=== PATIENT | female | born 1960 | race Caucasian/White ===

== ENCOUNTER → 2017-01-04 | Outpatient (CLI) | payer BC | LOC: MW.CHPM 10:53 | PROVIDERS: ATTEND Anesthesiology | DX: Z51.81 Encounter for therapeutic drug level monitoring (principal); Z79.891 Long term (current) use of opiate analgesic | CPT/HCPCS: 80305 ==

== ENCOUNTER → 2017-03-04 | Outpatient (CLI) | payer BC ==
[2017-03-04 10:18] LABS: CHLORIDE,CL 104 mmol/L (98-110); SODIUM,NA 139 mmol/L (136-146)
== END ==
LOC: MW.CHIM 09:35
PROVIDERS: ATTEND Internal Medicine
DX: E78.00 Pure hypercholesterolemia, unspecified (principal); I10 Essential (primary) hypertension; Z79.891 Long term (current) use of opiate analgesic
CPT/HCPCS: 36415; 80053; 80061; 80305; 83036; 85025

== ENCOUNTER → 2017-03-12 | Outpatient (CLI) | payer BC | LOC: MW.CHIM 14:39 | PROVIDERS: ATTEND Internal Medicine | DX: R07.9 Chest pain, unspecified (principal) | CPT/HCPCS: 93005 ==

== ENCOUNTER → 2017-03-16 | Outpatient (CLI) | payer BC ==
--- NOTE | 2017-03-17 08:51 | CR ---
EXAMINATION: Bilateral knees HISTORY: Pain COMPARISON: MRI dated 02/09/2014 TECHNIQUE: 4 views bilaterally FINDINGS: There is no acute osseous abnormality, dislocation, or fracture identified. Bone mineraliz ation and joint spaces appear normal. No soft tissue swelling or joint effusion. Mild osteophyte for mation is noted. IMPRESSION: Mild degenerative changes without acute findings.
== END | disposition home or self-care (01) ==
LOC: MW.MRI 14:02
PROVIDERS: ATTEND Orthopaedic Surgery
DX: M25.561 Pain in right knee (principal); M25.562 Pain in left knee; M25.761 Osteophyte, right knee; M25.762 Osteophyte, left knee; Z51.81 Encounter for therapeutic drug level monitoring; Z79.891 Long term (current) use of opiate analgesic
CPT/HCPCS: 735642650; 73564-50

== ENCOUNTER → 2017-03-23 | Outpatient (CLI) | payer BC ==
--- NOTE | 2017-03-23 08:09 | PCM.PRNOTE ---
- Free Text/Narrative Note: Lexiscan Indication CP Patient was supervised today during infusion portion of the stress test. The patient received Regadenoson 0.4 mg IV and nuclear agent using standard protocol. Sestamibi Tm99 25 Mci was gievn afterwards Baseline blood pressure is 124/79 with a heart rate 92 EKG sinus rhythm without ST abnormalities Vital signs at injection: Peak blood pressure 104/58 with a heart rate of 112 Vital signs at 4 minutes post injection: Peak blood pressure 116/76 with a heart rate of 112 EKG sinus tachycardia without further ST changes Patient complains of chest pain spontaneously resolved Adverse effects from [place] scan none Test done due to end of protocol Impression 1. electrocardiographically nondiagnostic for ischemia due to chemical protocol 2. nuclear imaging pending
--- NOTE | 2017-03-24 08:14 | NM ---
EXAMINATION: Nuclear medicine myocardial perfusion study with exercise stress test. HISTORY: Chest pain. PROCEDURE: Following intravenous administration of 0.4 mg of Lexiscan and 27.5 mCi of technetium 99m sestamib i, stress SPECT images including gating imaging was performed. FINDINGS: Stress myocardial SPECT images demonstrates uniform tracer uptake throughout the left ventricular my ocardium. Review of gated images demonstrates normal wall motion, contractility and wall thickening. The left ventricular ejection fraction is 72 %. The left ventricular chamber size is normal. IMPRESSION: 1. No evidence of myocardial ischemia. 2. Normal ventricular chamber size and function with ejection fraction of 72 %.
--- NOTE | 2017-03-25 13:00 | ECHO ---
EXAM DATE: 03/23/17 PATIENT'S AGE: 56 The echocardiogram report can be seen in this patient's EMR (Electronic Medical Record) in the Reports section. LONA
== END ==
LOC: MW.NM 07:30
PROVIDERS: ATTEND Internal Medicine
DX: R07.9 Chest pain, unspecified (principal)
CPT/HCPCS: 78451; 93017; 93306; A9500; J2785

== ENCOUNTER 2017-10-21 11:49 | Day surgery (SDC) | payer BC ==
[~2017-10-21 11:49] MED LIST: Betamethasone Acetate/Betamethasone Sod Phosphate 30 MG/5 ML MDV ONE; Iopamidol 408 MG/ML 50 ML SDV ONE; Lidocaine 2% 5 ML SDV ONE; Ropivacaine 0.5% 5 MG/ML 30 ML SDV ONE
--- NOTE | 2017-10-21 17:59 | OR ---
SURGEON: Mayra Gallegos D.O. DATE OF PROCEDURE: 10/21/2017 OR STAFF PRESENT: 1. Mahad Rojas. 2. Henri Yuan RN. 3. Fatou Alves, RT. PREOPERATIVE DIAGNOSES: 1. Cervical degenerative disk disease. 2. Cervical spinal stenosis. 3. Cervical radiculopathy. POSTOPERATIVE DIAGNOSES: 1. Cervical degenerative disk disease. 2. Cervical spinal stenosis. 3. Cervical radiculopathy. PROCEDURE PERFORMED: 1. Cervical epidural steroid injection at C7-T1. 2. Fluoroscopic guidance for needle placement. 3. Local with oral Valium for sedation. SCREENING QUESTIONS: The patient answered "No" to all of the following questions: 1. Are you allergic to iodine, Betadine or latex? 2. Do you have a bleeding disorder? 3. Are you on anti-inflammatories or blood thinners? 4. Do you have any current local or systemic infections? 5. Do you have any joint replacements, heart valve replacements or a pacemaker? DESCRIPTION OF THE PROCEDURE: The patient had the procedure thoroughly explained including risks, benefits and alternatives. Consent was signed in my clinic indicating understanding and willingness to proceed. The patient presented to [facility] and was escorted to the dressing room to disrobe and change into a hospital gown. Preoperative vital signs were taken and stable. The patient reported that Valium 10 milligrams was taken prior to the procedure. The patient was brought to the procedure room and placed in the prone position on the [facility] frame for the cervical epidural steroid injection. A pillow was placed under the legs for patient comfort. The back was prepped with ChloraPrep and sterilely draped. All personnel in the operating room were dressed in appropriate attire including surgical scrubs, head and shoe covers. This was to ensure sterility while in the treatment room. During the time fluoroscopy was in use. all personnel in the operating room wore lead sevilla with thyroid collars. Sterile technique was used during the procedure. Skeletal landmarks were identified under fluoroscopic guidance for the C7-T1 interspace. The skin overlying the area was anesthetized with 2 cubic centimeters of 2% Lidocaine with a sterile 27-gauge 1.5 inch needle. Likewise the deep tissues were infiltrated. There was no evidence of infection at the site of needle insertion. Then a 20-gauge 3.5 inch Tuohy epidural needle was advanced under fluoroscopic guidance with loss of resistance technique. The needle position was visualized in both AP and lateral views for the C7-T1 cervical epidural steroid injection. Needle position was verified, 0.2 cubic centimeters increments of IsoVue-200 contrast dye injected under live fluoroscopy through microbore tubing and seen to outline the cervical epidural space in AP and lateral views. There was negative aspiration of heme, CSF and no paresthesias were noted. Then 6 milligrams of Celestone was slowly injected. The needle was cleared prior to removal from the skin. No adverse reactions were noted. The patient tolerated the procedure well and was brought to the recovery room awake and in good condition. After a brief stay in the recovery room monitored by the nurse, the patient was discharged to home. The patient was given both oral and written discharge and followup instructions and will follow up in the clinic in two to three weeks. The patient voiced understanding including understanding of those signs and symptoms that would require emergency care and also knows how to contact the office if there are any problems or questions in the meantime. PREOPERATIVE PAIN: 9/10. POSTOPERATIVE PAIN: 4/10. FOLLOWUP: Follow up in the Pain Clinic in 3 weeks. BREEZY / [place] /[id number]
== END 2017-10-21 13:42 ==
LOC: MW.SDS 11:49
PROVIDERS: ATTEND Anesthesiology
DX: M50.13 Cervical disc disorder with radiculopathy, cervicothoracic region (principal); J30.9 Allergic rhinitis, unspecified; M19.90 Unspecified osteoarthritis, unspecified site; J20.9 Acute bronchitis, unspecified; J44.9 Chronic obstructive pulmonary disease, unspecified; F32.9 Major depressive disorder, single episode, unspecified; K21.9 Gastro-esophageal reflux disease without esophagitis; I10 Essential (primary) hypertension; E78.00 Pure hypercholesterolemia, unspecified; M81.0 Age-related osteoporosis without current pathological fracture; M96.1 Postlaminectomy syndrome, not elsewhere classified; Z88.5 Allergy status to narcotic agent; Z79.899 Other long term (current) drug therapy; Z98.890 Other specified postprocedural states; Z90.89 Acquired absence of other organs; Z98.51 Tubal ligation status; F17.210 Nicotine dependence, cigarettes, uncomplicated
CPT/HCPCS: 62323; J0702; Q9966; J2795

== ENCOUNTER 2017-11-25 10:59 | Day surgery (SDC) | payer BC ==
[2017-11-25] MEDS ORDERED: Lidocaine 2% 5 ML SDV ONE (11:58)
[2017-11-25] MEDS ORDERED: Iopamidol 408 MG/ML 50 ML SDV ONE (11:58)
[2017-11-25] MEDS ORDERED: Ropivacaine 0.5% 5 MG/ML 30 ML SDV ONE (11:58)
[2017-11-25] MEDS ORDERED: Betamethasone Acetate/Betamethasone Sod Phosphate 30 MG/5 ML MDV ONE (11:58)
--- NOTE | 2017-11-25 19:48 | OR ---
SURGEON: Mayra Gallegos D.O. DATE OF PROCEDURE: 11/25/2017 OR STAFF PRESENT: 1. Autumn Deshpande RN. 2. technical communication teacher. WOUND CLASSIFICATION: I. PREOPERATIVE DIAGNOSIS: Thoracic facet arthropathy. POSTOPERATIVE DIAGNOSES: Thoracic facet arthropathy. PROCEDURE PERFORMED: 1. Bilateral T1 and T2 diagnostic and therapeutic medial branch blocks. 2. Fluoroscopic guidance for needle placement. 3. Local with oral Valium for sedation. SCREENING QUESTIONS: The patient answered "No" to all the following questions: 1. Are you allergic to iodine, Betadine or latex? 2. Do you have a bleeding disorder? 3. Are you on anti-inflammatories or blood thinners? 4. Do you have any current local or systemic infections? MEDICAL NECESSITY: This is a patient with chronic low back pain who comes in for the above diagnostic procedure. This procedure is being performed in accordance with national guidelines written by the [employer]; please see medical necessity note in chart. DESCRIPTION OF PROCEDURE: The patient had the procedure thoroughly explained including risks, benefits and alternatives. Consent was signed in my clinic indicating understanding and willingness to proceed. The patient presented to [facility] and was escorted to the dressing room to disrobe and change into a hospital gown. Preoperative history and screening were performed by my nurse. Vital signs were taken and stable. The patient reported that Valium 10 milligrams was taken prior to the procedure. The patient was brought back to the procedure room and placed in the prone position on the procedure room table. A pillow was placed under the abdomen in order to flatten the lumbar lordosis. The back was prepped with ChloraPrep and sterilely draped. All personnel in the procedure room were dressed in appropriate attire including surgical scrubs, head and shoe covers. This was to ensure sterility while in the treatment room. During the time fluoroscopy was in use all personnel in the operating room wore lead sevilla with thyroid collars. Sterile technique was used during the procedure. Then the fluoroscope was positioned to provide a right oblique view for the right T1 medial branch. This was begun by anesthetizing the skin and soft tissues. The fluoroscope was positioned and a sterile 22-gauge 3.5 inch needle was placed at the junction of the superior lateral border of the transverse process of the T1 vertebral body. Precise needle placement was confirmed by fluoroscopy and with 0.2 cubic centimeters increments of IsoVue-200 contrast dye injected through microbore tubing under live fluoroscopy which showed no intravascular flow pattern and adequate flow over the target medial branch. After negative aspiration, 0.5 cubic centimeters mixture of celestone with local was injected without complications. This was repeated on the left for the left T1 medial branch block. The fluoroscope was then positioned to provide a right T2 medial branch block. This was begun by anesthetizing the skin and soft tissues. Then using fluoroscopic guidance, a sterile 22-gauge 3.5 inch spinal needle was positioned at the right supeior lateral border of the T2 transverse process. Precise needle placement was confirmed by fluoroscopy in AP and oblique views, and 0.2 cubic centimeters increments of IsoVue-200 contrast dye was injected through microbore tubing under live fluoroscopy and showed no intravascular flow pattern and adequate flow over the target nerve. After negative aspiration, 0.5 cubic centimeters of celestone and local was injected. No complications were noted. This was repeated on the left for the left T 2 medial branch block. The procedure was well tolerated and vital signs were stable during and after the procedure. The staff escorted the patient to the recovery area. The patient was given both oral and written discharge and followup instructions. The patient will follow up with a pain diary which will be evaluated over this evening doing things that would normally cause pain. We will evaluate the efficacy of the diagnostic lumbar medial branch blocks as the patient will follow up in the clinic the next day. The patient was given both oral and written discharge and followup instructions. The patient voiced understanding including understanding of those signs and symptoms that would require emergency care and knows how to contact the office if there are any questions or concerns in the meantime. PREOPERATIVE PAIN: 04/17. POSTOPERATIVE PAIN: 11/17. FOLLOWUP: Follow up in the Pain Clinic in 3 weeks. HOGLCHR / MODL /[id number] LONA
== END 2017-11-25 13:10 | disposition home or self-care (01) ==
LOC: MW.SDS 10:59
PROVIDERS: ATTEND Anesthesiology
DX: G89.29 Other chronic pain (principal); J30.9 Allergic rhinitis, unspecified; N60.19 Diffuse cystic mastopathy of unspecified breast; M47.22 Other spondylosis with radiculopathy, cervical region; M48.02 Spinal stenosis, cervical region; J44.9 Chronic obstructive pulmonary disease, unspecified; F32.9 Major depressive disorder, single episode, unspecified; K59.00 Constipation, unspecified; K21.9 Gastro-esophageal reflux disease without esophagitis; I10 Essential (primary) hypertension; E78.00 Pure hypercholesterolemia, unspecified; M18.0 Bilateral primary osteoarthritis of first carpometacarpal joints; M17.0 Bilateral primary osteoarthritis of knee; M81.0 Age-related osteoporosis without current pathological fracture; G62.9 Polyneuropathy, unspecified; M41.9 Scoliosis, unspecified; F17.210 Nicotine dependence, cigarettes, uncomplicated; Z88.5 Allergy status to narcotic agent; Z79.899 Other long term (current) drug therapy; Z90.89 Acquired absence of other organs; Z98.51 Tubal ligation status
CPT/HCPCS: 64490; J0702; Q9966; 64450; J2795

== ENCOUNTER 2018-03-08 10:49 | Day surgery (SDC) | payer BC ==
--- NOTE | 2018-03-08 15:12 | OR ---
SURGEON: Mayra Gallegos D.O. DATE OF PROCEDURE: OR STAFF PRESENT: 1. Shaista Garcia. 2. David Burgess RN. 3. Dima Jason RT. WOUND CLASSIFICATION: I. PREOPERATIVE DIAGNOSES: 1. Failed neck surgery syndrome. 2. Cervical facet syndrome. 3. Chronic neck pain. POSTOPERATIVE DIAGNOSES: 1. Failed neck surgery syndrome. 2. Cervical facet syndrome. 3. Chronic neck pain. PROCEDURES PERFORMED: 1. Left C3 medial branch block, left C4 medial branch block, left C5 medial branch block. 2. Fluoroscopic guidance for needle placement. 3. Local with oral Valium for sedation. SCREENING QUESTIONS: The patient answered "No" to all of the following questions: 1. Are you allergic to iodine, Betadine or latex? 2. Do you have a bleeding disorder? 3. Are you on anti-inflammatories or blood thinners? 4. Do you have any current local or systemic infections? 5. Do you have any joint replacements, heart valve replacements or a pacemaker? DESCRIPTION OF THE PROCEDURE: The patient had the procedure thoroughly explained including risks, benefits and alternatives. Consent was signed in my clinic indicating understanding and willingness to proceed. The patient presented to [facility] and was escorted to the dressing room to disrobe and change into a hospital gown. Preoperative vital signs were taken and stable. The patient reported that Valium 10 milligrams was taken prior to the procedure. The patient was brought to the procedure room and placed in the prone position on the [facility] frame for the cervical epidural steroid injection. A pillow was placed under the legs for patient comfort. The back was prepped with ChloraPrep and sterilely draped. All personnel in the operating room were dressed in appropriate attire including surgical scrubs, head and shoe covers. This was to ensure sterility while in the treatment room. During the time fluoroscopy was in use. all personnel in the operating room wore lead sevilla with thyroid collars. Sterile technique was used during the procedure. Skeletal landmarks were identified under fluoroscopic guidance for the C7-T1 interspace. The skin overlying the area was anesthetized with 2 cubic centimeters of 2% Lidocaine with a sterile 27-gauge 1.5 inch needle. Likewise the deep tissues were infiltrated. There was no evidence of infection at the site of needle insertion. Then a 20-gauge 3.5 inch Tuohy epidural needle was advanced under fluoroscopic guidance with loss of resistance technique. The needle position was visualized in both AP and lateral views for the C7-T1 cervical epidural steroid injection. Needle position was verified, 0.2 cubic centimeters increments of IsoVue-200 contrast dye injected under live fluoroscopy through microbore tubing and seen to outline the cervical epidural space in AP and lateral views. There was negative aspiration of heme, CSF and no paresthesias were noted. Then 6 milligrams of Celestone was slowly injected. The needle was cleared prior to removal from the skin. No adverse reactions were noted. The patient tolerated the procedure well and was brought to the recovery room awake and in good condition. After a brief stay in the recovery room monitored by the nurse, the patient was discharged to home. The patient was given both oral and written discharge and followup instructions and will follow up in the clinic in two to three weeks. The patient voiced understanding including understanding of those signs and symptoms that would require emergency care and also knows how to contact the office if there are any problems or questions in the meantime. PREOPERATIVE PAIN: 9/10. POSTOPERATIVE PAIN: 3 to 4/10. PLAN: Follow up in the Pain Clinic in 3 weeks. BREEZY / [place] /[id number]
== END 2018-03-08 13:40 | disposition home or self-care (01) ==
LOC: MW.SDS 10:49
PROVIDERS: ATTEND Anesthesiology
DX: G89.29 Other chronic pain (principal); M54.2 Cervicalgia; M96.1 Postlaminectomy syndrome, not elsewhere classified; M53.82 Other specified dorsopathies, cervical region; J44.9 Chronic obstructive pulmonary disease, unspecified; F32.9 Major depressive disorder, single episode, unspecified; K21.9 Gastro-esophageal reflux disease without esophagitis; I10 Essential (primary) hypertension; E78.00 Pure hypercholesterolemia, unspecified; J30.2 Other seasonal allergic rhinitis; Z88.8 Allergy status to other drugs, medicaments and biological substances; Z79.891 Long term (current) use of opiate analgesic; Z79.899 Other long term (current) drug therapy; F17.210 Nicotine dependence, cigarettes, uncomplicated
CPT/HCPCS: 64490; 64491; J0702; Q9966; 64450; J2795

== ENCOUNTER 2019-01-19 10:00 | Emergency (ER) | payer BC ==
--- NOTE | 2019-01-19 10:23 | EDM.PDOC ---
ED HPI GENERAL MEDICAL PROBLEM - General Chief Complaint: Upper Extremity Injury/Pain Stated Complaint: INJURED ELBOW Time Seen by Provider: 01/19/19 10:05 Source of Information: Reports: Patient History Limitations: Reports: No Limitations - History of Present Illness INITIAL COMMENTS - FREE TEXT/NARRATIVE: History of present illness: []Patient flicked open a garbage bag 2 days ago and felt a pop in her elbow with sudden pain, yesterday she was carrying a bag of groceries and felt increased elbow pain Review of systems: As per history of present illness and below otherwise all systems reviewed and negative. Past medical history: As per history of present illness and as reviewed below otherwise noncontributory. Surgical history: As per history of present illness and as reviewed below otherwise noncontributory. Social history: No reported history of drug or alcohol abuse. Family history: As per history of present illness and as reviewed below otherwise noncontributory. Physical exam: General: Well developed, well nourished in NAD HEENT: Atraumatic, normocephalic, pupils reactive, negative for conjunctival pallor or scleral icterus, mucous membranes moist, throat clear, neck supple, nontender, trachea midline. Lungs: Clear to auscultation, breath sounds equal bilaterally, chest nontender. Heart: S1S2, regular, negative for clicks, rubs, or JVD. Abdomen: NABS, Soft, nondistended, nontender. Negative for masses or hepatosplenomegaly. Negative for costovertebral tenderness. Pelvis: Stable nontender. Genitourinary: Deferred. Rectal: Deferred. Extremities: Left elbow with swelling and tenderness diffusely. Unable to extend full range of motion., negative for cords or calf pain. Neurovascular unremarkable. Neuro: Awake, alert, oriented. Cranial nerves II through XII unremarkable. Cerebellum unremarkable. Motor and sensory unremarkable throughout. Exam nonfocal. Skin:warm and dry Diagnostics: Therapeutics: ED Course: Impression: Prescriptions: Plan: Definitive disposition and diagnosis as appropriate pending reevaluation and review of above. left elbow Pain Score (Numeric/FACES): 10 - Related Data Allergies Allergy/AdvReac Type Severity Reaction Status Date / Time morphine Allergy Headache Verified 01/19/19 10:08 Home Meds: Home Meds B12/Levomefolate Calcium/B-6 [Foltx Tablet] 1 tab PO DAILY 07/16/14 [History] DULoxetine [Cymbalta] 60 mg PO DAILY 07/16/14 [History] Diclofenac Epolamine [Flector 1.3%] 1 each TOP BID 07/16/14 [History] Gabapentin [Neurontin] 600 mg PO TID 07/16/14 [History] Hydrocodone/Acetaminophen [Hydrocodone-Acetaminophen 5-325] 1 tab PO TID PRN 06/21 [History] Metoprolol Succinate [Toprol XL] 50 mg PO DAILY 07/16/14 [History] Simvastatin [Zocor] 40 mg PO BEDTIME 04/29/15 [History] Pantoprazole [Protonix] 40 mg PO ACBREAKFAST #30 tab.cr 04/30/15 [Rx] Past Medical History Other HEENT History: wears bifocal glasses Other Cardiovascular History: tachycardia Other Gastrointestinal History: inguinal hernia - Infectious Disease History Infectious Disease History: Reports: Chicken Pox - Past Surgical History Other Musculoskeletal Surgeries/Procedures:: scoliosis Social & Family History - Family History Family Medical History: Noncontributory - Tobacco Use Smoking Status *Q: Current Every Day Smoker Years of Tobacco use: 40 Packs/Tins Daily: 1 - Caffeine Use Caffeine Use: Reports: Coffee - Recreational Drug Use Recreational Drug Use: No Review of Systems - Review of Systems Review Of Systems: ROS reveals no pertinent complaints other than HPI. ED EXAM, GENERAL - Physical Exam Exam: See Below (See history of present illness) Course - Vital Signs Last Recorded V/S: Last Vital Signs Temp 97.6 F 01/19/19 10:08 Pulse 91 01/19/19 10:08 Resp 20 01/19/19 10:08 BP 145/89 H 01/19/19 10:08 Pulse Ox 98 01/19/19 10:08 - Orders/Labs/Meds Orders: Active Orders 24 hr Category Date Time Status Splinting [RC] ASDIRECTED Care 01/19/19 10:54 Active Departure - Departure Time of Disposition: 11:08 Disposition: Home, Self-Care 01 Condition: Good Clinical Impression: Left elbow pain, Arthritis of elbow, left - Discharge Information *PRESCRIPTION DRUG MONITORING PROGRAM REVIEWED*: Not Applicable *COPY OF PRESCRIPTION DRUG MONITORING REPORT IN PATIENT ZAIRA: Not Applicable Referrals: PCP,Unknown [Primary Care Provider] - Nohelia Estrada MD [Physician] - (next Available appointment) Forms: ED Department Discharge Additional Instructions: The following information is given to patients seen in the emergency department who are being discharged to home. This information is to outline your options for follow-up care. We provide all patients seen in our emergency department with a follow-up referral. The need for follow-up, as well as the timing and circumstances, are variable depending upon the specifics of your emergency department visit. If you don't have a primary care physician on staff, we will provide you with a referral. We always advise you to contact your personal physician following an emergency department visit to inform them of the circumstance of the visit and for follow-up with them and/or the need for any referrals to a consulting specialist. The emergency department will also refer you to a specialist when appropriate. This referral assures that you have the opportunity for follow-up care with a specialist. All of these measure are taken in an effort to provide you with optimal care, which includes your follow-up. Under all circumstances we always encourage you to contact your private physician who remains a resource for coordinating your care. When calling for follow-up care, please make the office aware that this follow-up is from your recent emergency room visit. If for any reason you are refused follow-up, please contact the [facility] Department at and asked to speak to the emergency department charge nurse. [facility] [address], [address] [place] [address] - My Orders Last 24 Hours: My Active Orders 01/19/19 10:54 Splinting [RC] ASDIRECTED - Assessment/Plan Last 24 Hours: My Active Orders 01/19/19 10:54 Splinting [RC] ASDIRECTED
--- NOTE | 2019-01-19 10:48 | CR ---
EXAMINATION: Left elbow HISTORY: Pain COMPARISON: None TECHNIQUE: 3 views FINDINGS: There is a large joint effusion. Moderate osteophyte formation is noted throughout the left elbow. There is a prominent of the posterior distal humerus, this appears corticated. Focal overlying soft tissue swelling is however noted. A definite fracture or acute osseous abnormality is not noted. IMPRESSION: 1. Large joint effusion and moderate degenerative changes noted within the left elbow.
[2019-01-19 11:34] VITALS: BP 133/83
== END 2019-01-19 11:28 | disposition home or self-care (01) ==
LOC: MW.ED 10:00
DX: M19.022 Primary osteoarthritis, left elbow (principal); F17.210 Nicotine dependence, cigarettes, uncomplicated; Z79.899 Other long term (current) drug therapy; Z88.5 Allergy status to narcotic agent
CPT/HCPCS: 73080-26-LT; 73080-LT; 99283; 99283-25

== ENCOUNTER 2021-04-18 12:10 | Emergency (ER) | payer BC ==
[2021-04-18] MEDS ORDERED: Lidocaine 2% Viscous Solution 15 ML Cup PO ONE (12:26)
--- NOTE | 2021-04-18 12:54 | CR ---
For Patients: As a result of the Century Cures Act, medical imaging exams and procedure reports are released immediately into your electronic medical record. You may view this report before your referring provider. If you have questions, please contact your health care provider. INDICATION: Cough TECHNIQUE: Chest 1 views COMPARISON: To 20 second 2014 FINDINGS: Cardiovascular and mediastinum: Heart size and vasculature are normal in caliber and appearance. Lungs and pleural spaces: Lungs are clear. No sign of infiltrate or mass. No sign of pleural effusion. No pneumothorax. Bones and soft tissues: No significant findings. IMPRESSION: No acute findings and no significant changes from the prior exam. Dictated by Gerardo Chase MD @ 04/18/2021 12:53:[address] Gerardo Chase @ Apr 18 2021 12:53PM
--- NOTE | 2021-04-18 13:34 | EDM.PDOC ---
ED HPI GENERAL MEDICAL PROBLEM - General Chief Complaint: Respiratory Problem Stated Complaint: POSS PX Time Seen by Provider: 04/18/21 12:11 Source of Information: Reports: Patient History Limitations: Reports: No Limitations - History of Present Illness INITIAL COMMENTS - FREE TEXT/NARRATIVE: HISTORY AND PHYSICAL: History of present illness: It is a 61-year-old female who presents to the emergency room with complaints of a dry nonproductive cough, sore throat and "sores in my mouth" over the past few days. She has been taking care of her elderly mother who was recently placed in [facility]. Her mom had bacterial pneumonia and she is concerned that she may have this as well. Patient denies any fever, chills, headache, change in vision, syncope or near syncope. Denies any chest pain, back pain, shortness of breath or hemoptysis. Denies any abdominal pain, nausea, vomiting, diarrhea, constipation or dysuria. Has not noted any blood in urine or stool. Patient has been eating and drinking appropriately. Minor concerns for COVID due to exposure to her ill mother. Review of systems: As per history of present illness and below otherwise all systems reviewed and negative. Past medical history: As per history of present illness and as reviewed below otherwise noncontributory. Surgical history: As per history of present illness and as reviewed below otherwise noncontributory. Social history: See social history for further information Family history: As per history of present illness and as reviewed below otherwise noncontributory. Physical exam: General: Well developed and well nourished 61 year old female. Alert and orientated x 3. Nontoxic in appearance and in no acute distress. Vital signs are stable and have been reviewed by me. Nursing notes were reviewed. HEENT: Atraumatic, normocephalic, pupils equal and reactive bilaterally, negative for conjunctival pallor or scleral icterus, mucous membranes moist, TMs normal bilaterally, throat clear, neck supple, nontender, trachea midline. No drooling or trismus noted. No meningeal signs. No hot potato voice noted. Lungs: Clear to auscultation bilaterally. No wheezes, rales, or rhonchi. Chest nontender. Normal work of breathing, no accessory muscles used. Dry nonproductive cough. Heart: S1S2, regular rate and rhythm without overt murmur, gallops, or rubs. No JVD. No peripheral edema Abdomen: Soft, nondistended, nontender. Skin: Intact, warm, dry. No lesions or rashes noted. Hematologic: No petechiae or purpra. Mucosa appropriate color and normal nail bed color and refill. Extremities: Atraumatic, moves all extremities per self without difficulty or deficits, negative for cords or calf pain. Neurovascular unremarkable. Neuro: Awake, alert, oriented. Cranial nerves II through XII unremarkable. Cerebellum unremarkable. Motor and sensory unremarkable throughout. Exam nonfocal. Psychiatric: Mood and affect are appropriate. Normal thought process. Answering questions appropriately. Notes: *This patient was seen and evaluated during the 2019 SARS-CoV-2 novel coronavirus pandemic period. Community viral transmission is ongoing at time of this encounter and the emergency department is operating under pandemic response procedures. Patient is a 61-year-old female who presents to the emergency room with concerns of "bacterial pneumonia". She also states she has a sore throat with "sores" in her mouth. Physical exam is unremarkable, dry nonproductive cough is noted. We will do a chest x-ray and COVID-19 screening. Patient is agreeable to plan of care. COVID screening is unremarkable. Chest x-ray shows no acute findings. Due to length of symptoms I will treat her with a Z-Adams. I have talked with the patient about today's findings, in addition to providing specific details for plan of care. Reassessment at the time of disposition demonstrates that the patient is in no acute distress. The patient is stable for discharge, counseling was provided and we discussed in great detail signs and symptoms that would prompt them to return to the Emergency Department. Medication, follow up and supportive care measures were reviewed and discussed. Voices understanding and is agreeable to plan of care. Denies any further questions or concerns at this time. Diagnostics: Chest x-ray, COVID-19 Therapeutics: Viscous lidocaine Prescription: Z-Adams Impression: Bronchitis Plan: 1. You were evaluated today on an emergent basis. Your chest x-ray and COVID are within normal limits. Will treat you with antibiotics, take as directed. 2. You can alternate Tylenol and ibuprofen as needed for pain and fever management. Cheratussin as directed, this medication may cause drowsiness, so do not take while driving or needing function outside of the house. 3. We encourage you to follow up with your primary care provider and/or recommended specialist in the next few days for re-evaluation and further care/management. 4. If your symptoms should worsen, new symptoms develop or any of the signs and symptoms we discussed should arise please return to the emergency room or call 911 (if needed). Definitive disposition and diagnosis as appropriate pending reevaluation and review of above. Oral/Mouth Pain Score (Numeric/FACES): 10 - Related Data Allergies Allergy/AdvReac Type Severity Reaction Status Date / Time morphine Allergy Headache Verified 04/18/21 12:24 Home Meds: Home Meds B12/Levomefolate Calcium/B-6 [Foltx Tablet] 1 tab PO DAILY 07/16/14 [History] DULoxetine [Cymbalta] 60 mg PO DAILY 07/16/14 [History] Diclofenac Epolamine [Flector 1.3%] 1 each TOP BID 07/16/14 [History] Gabapentin [Neurontin] 600 mg PO TID 07/16/14 [History] Hydrocodone/Acetaminophen [Hydrocodone-Acetaminophen 5-325] 1 tab PO TID PRN 07/16/14 [History] Metoprolol Succinate [Toprol XL] 50 mg PO DAILY 07/16/14 [History] Simvastatin [Zocor] 40 mg PO BEDTIME 04/29/15 [History] Pantoprazole [Protonix] 40 mg PO ACBREAKFAST #30 tab.cr 04/30/15 [Rx] Past Medical History Other HEENT History: wears bifocal glasses Other Cardiovascular History: tachycardia Other Gastrointestinal History: inguinal hernia - Infectious Disease History Infectious Disease History: Reports: Chicken Pox - Past Surgical History Other Musculoskeletal Surgeries/Procedures:: scoliosis Social & Family History - Family History Family Medical History: No Pertinent Family History - Tobacco Use Tobacco Use Status *Q: Current Every Day Tobacco User Years of Tobacco use: 50 Packs/Tins Daily: 1 - Caffeine Use Caffeine Use: Reports: None - Recreational Drug Use Recreational Drug Use: No ED ROS GENERAL - Review of Systems Review Of Systems: Comprehensive ROS is negative, except as noted in HPI. ED EXAM, GENERAL - Physical Exam Exam: See Below (See dictation) Course - Vital Signs Last Recorded V/S: Last Vital Signs Temp 98 F 04/18/21 12:24 Pulse 93 04/18/21 12:24 Resp 16 06/11/21 12:24 BP 164/98 H 04/18/21 12:24 Pulse Ox 96 04/18/21 12:24 - Orders/Labs/Meds Labs: Laboratory Tests 04/18/21 Range/Units 12:34 SARS-CoV-2 RNA (YELITZA) NEGATIVE (NEGATIVE) Meds: Medications Discontinued Medications Generic Name Dose Route Start Last Admin Trade Name Dulce PRN Reason Stop Dose Admin Lidocaine HCl 15 ml 04/18/21 12:26 04/18/21 12:35 Lidocaine 2% Viscous Solution 15 Ml Cup PO 04/18/21 12:27 15 ml ONETIME ONE Administration Departure - Departure Time of Disposition: 13:33 Disposition: Home, Self-Care 01 Clinical Impression: Bronchitis - Discharge Information Instructions: Acute Bronchitis, Adult, [id number] Referrals: Yovani Valles MD [Primary Care Provider] - Forms: ED Department Discharge Additional Instructions: The following information is given to patients seen in the emergency department who are being discharged to home. This information is to outline your options for follow-up care. We provide all patients seen in our emergency department with a follow-up referral. The need for follow-up, as well as the timing and circumstances, are variable depending upon the specifics of your emergency department visit. If you don't have a primary care physician on staff, we will provide you with a referral. We always advise you to contact your personal physician following an emergency department visit to inform them of the circumstance of the visit and for follow-up with them and/or the need for any referrals to a consulting specialist. The emergency department will also refer you to a specialist when appropriate. This referral assures that you have the opportunity for follow-up care with a specialist. All of these measure are taken in an effort to provide you with optimal care, which includes your follow-up. Under all circumstances we always encourage you to contact your private p hysician who remains a resource for coordinating your care. When calling for follow-up care, please make the office aware that this follow-up is from your recent emergency room visit. If for any reason you are refused follow-up, please contact the [facility] Emergency Department at and asked to speak to the emergency department charge nurse. [facility] [address] [place] [id number] [facility] [address] [place] [address] Thank you for choosing the [facility] emergency department in [place] for your medical needs today. It was a pleasure caring for you. Today you were seen in the emergency department for cough, sore throat, and mouth sores. 1. You were evaluated today on an emergent basis. Your chest x-ray and COVID are within normal limits (negative). Will treat you with antibiotics, take as directed. 2. You can alternate Tylenol and ibuprofen as needed for pain and fever management. Cheratussin as directed, this medication may cause drowsiness, so do not take while driving or needing function outside of the house. 3. We encourage you to follow up with your primary care provider and/or recommended specialist in the next few days for re-evaluation and further care/management. 4. If your symptoms should worsen, new symptoms develop or any of the signs and symptoms we discussed should arise please return to the emergency room or call 911 (if needed). Sepsis Event Note (ED) - Evaluation Sepsis Screening Result: No Definite Risk - Focused Exam Vital Signs: Vital Signs Temp Pulse Resp BP Pulse Ox 04/18/21 12:24 98 F 93 16 164/98 H 96
[2021-04-18 14:06] VITALS: BP 143/79; PULSE 80
== END 2021-04-18 14:06 | disposition home or self-care (01) ==
LOC: MW.ED 12:10
DX: J40 Bronchitis, not specified as acute or chronic (principal); Z72.0 Tobacco use; Z88.6 Allergy status to analgesic agent; Z20.822 Contact with and (suspected) exposure to COVID-19
CPT/HCPCS: 71045; 87635; 99283; A9270; U0002

== ENCOUNTER 2022-08-16 04:44 | Emergency (ER) | payer BC ==
[2022-08-16] MEDS ORDERED: Metoprolol Tartrate 50 MG Tab PO ONE (04:45)
== END 2022-08-16 05:00 | disposition home or self-care (01) ==
LOC: MW.ED 04:44
DX: R00.0 Tachycardia, unspecified (principal); Z76.0 Encounter for issue of repeat prescription
CPT/HCPCS: 99284; A9270

== ENCOUNTER 2022-12-07 09:32 | Day surgery (SDC) | payer BC ==
[~2022-12-07 09:32] MED LIST changes: -Betamethasone Acetate/Betamethasone Sod Phosphate 30 MG/5 ML MDV ONE; -Iopamidol 408 MG/ML 50 ML SDV ONE; +Lactated Ringers 1,000 ML IV SCH; -Lidocaine 2% 5 ML SDV ONE; -Ropivacaine 0.5% 5 MG/ML 30 ML SDV ONE; +ceFAZolin 2 GM in Premix Bag 1 BAG IV ONE
[2022-12-07] MEDS ORDERED: fentaNYL 250 MCG/5 ML SDV ONE (09:36)
[2022-12-07] MEDS ORDERED: propofoL 100 ML ONE (09:36)
[2022-12-07] MEDS ORDERED: Naloxone 0.4 MG/ML SDV IVPUSH PRN (09:56)
[2022-12-07] MEDS ORDERED: Albuterol 0.083% 2.5 MG/3 ML Neb Soln NEB PRN (09:56)
[2022-12-07] MEDS ORDERED: Metoclopramide 10 MG/2 ML SDV IVPUSH PRN (09:56)
[2022-12-07] MEDS ORDERED: fentaNYL 50 MCG/ML SDV IVPUSH PRN (09:56)
[2022-12-07] MEDS ORDERED: Ondansetron 4 MG/2 ML SDV IVPUSH PRN ×2 (09:56→13:17)
[2022-12-07] MEDS ORDERED: HYDROmorphone 1 MG/ML Syringe IVPUSH PRN (09:56)
[2022-12-07] MEDS ORDERED: Fluorescein 5 ML Vial ONE (12:50)
[2022-12-07] MEDS ORDERED: Ropivacaine 0.5% 5 MG/ML 30 ML SDV ONE (13:13)
[2022-12-07] MEDS ORDERED: Promethazine 25 MG/ML SDV IM PRN (13:17)
[2022-12-07] MEDS ORDERED: Metoclopramide 10 MG/2 ML SDV ONE (13:22)
[2022-12-07] MEDS ORDERED: Sugammadex Sodium 200 MG/2 ML VIAL ONE (13:22)
[2022-12-07] MEDS ORDERED: Dexamethasone 4 MG/ML 5 ML MDV ONE (13:22)
[2022-12-07] MEDS ORDERED: Famotidine 20 MG/2 ML SDV ONE (13:23)
[2022-12-07] MEDS ORDERED: Lactated Ringers 1,000 ML IV SCH (13:30)
[2022-12-07] MEDS: Acetaminophen 325 MG Tab PO SCH ×3 (18:06→20:37)
[2022-12-07] MEDS: Ketorolac 30 MG/ML SDV IVPUSH SCH ×2 (18:09→19:06)
[2022-12-07] MEDS ORDERED: NALTREXONE 4.5 MG PO SCH (21:00)
[2022-12-07] MEDS ORDERED: Metoprolol Succinate 50 MG Tab.ER PO SCH (21:00)
[2022-12-07] MEDS ORDERED: Gabapentin 300 MG Cap PO PRN (22:00)
[2022-12-08] MEDS: Acetaminophen 325 MG Tab PO SCH ×3 (01:01→09:50)
[2022-12-08] MEDS: Ketorolac 30 MG/ML SDV IVPUSH SCH ×2 (01:02→06:18)
[2022-12-08 06:15] LABS: CARBON DIOXIDE,CO2 29.4 mmol/L (21.0-32.0); POTASSIUM,K 4.2 mmol/L (3.5-5.1)
[2022-12-08 07:11] VITALS: BP 123/59; PULSE 70
[2022-12-08] MEDS ORDERED: NALTREXONE PO SCH (09:00)
[2022-12-08] MEDS ORDERED: DULoxetine 60 MG Cap PO SCH (09:00)
== END 2022-12-08 10:30 | disposition home or self-care (01) ==
LOC: MW.SDS 09:32 → MW.MS 14:25 → MW.SDS 12-08 10:30
PROVIDERS: ATTEND Obstetrics & Gynecology
DX: D26.9 Other benign neoplasm of uterus, unspecified (principal); N80.03 Adenomyosis of the uterus; M19.90 Unspecified osteoarthritis, unspecified site; M79.7 Fibromyalgia; F17.210 Nicotine dependence, cigarettes, uncomplicated; K21.9 Gastro-esophageal reflux disease without esophagitis; G89.29 Other chronic pain; M54.2 Cervicalgia; J44.9 Chronic obstructive pulmonary disease, unspecified; Z88.6 Allergy status to analgesic agent; Z98.890 Other specified postprocedural states; Z79.899 Other long term (current) drug therapy; Z98.1 Arthrodesis status
CPT/HCPCS: 00944; 36415; 64488; 80048; 85025; A9270-GY; J0131; J1100; J1885; J2704; J2765; J2795; J3010; J3490; J7120

== ENCOUNTER 2024-02-27 06:32 | Emergency (ER) | payer BC ==
[2024-02-27 06:51] LABS: BASOPHILS ABSOLUTE AUTO 0.05 K/uL (0.00-0.20); BASOPHILS PERCENT AUTO 0.6 % (0.0-1.0); EOSINOPHILS ABSOLUTE AUTO 0.09 K/uL (0.00-0.45); HEMOGLOBIN 11.3 g/dL (12.0-16.0); IMMATURE GRAN ABSOLUTE AUTO 0.02 K/uL (0.00-0.05); IMMATURE GRAN PERCENT AUTO 0.2 % (0.0-0.4); LYMPHOCYTES ABSOLUTE AUTO 2.23 K/uL (1.00-4.80); MEAN CORPUSCULAR HEMOGLOBIN 31.1 pg (28.0-32.0); MEAN CORPUSCULAR HGB CONC 33.2 g/dL (32.0-36.0); MEAN CORPUSCULAR VOLUME 93.7 fL (83.0-99.0); MEAN PLATELET VOLUME 9.6 fL (9.4-12.3); MONOCYTES ABSOLUTE AUTO 0.54 K/uL (0.00-0.80); MONOCYTES PERCENT AUTO 6.3 % (0.0-8.0); NEUTROPHILS ABSOLUTE AUTO 5.66 K/uL (1.80-7.70); NEUTROPHILS PERCENT AUTO 65.9 % (41.0-71.0); PLATELET COUNT,PLT 312 K/uL (150-400); RED BLOOD CELL COUNT 3.63 M/uL (4.10-5.30); WHITE BLOOD CELL COUNT,WBC 8.59 K/uL (3.9-11.3)
[2024-02-27 07:16] LABS: BLOOD UREA NITROGEN,BUN 16 mg/dL (7.0-18.0); CALCIUM 9.3 mg/dL (8.5-10.1); CARBON DIOXIDE,CO2 25.3 mmol/L (21.0-32.0); CHLORIDE,CL 101 mmol/L (98-107); CREATININE 0.8 mg/dL (0.6-1.0); EST CRCL DRUG DOSING (CG) 71.81 mL/min; GLUCOSE RANDOM 113 mg/dL (74-106); POTASSIUM,K 3.4 mmol/L (3.5-5.1); SODIUM,NA 137 mmol/L (136-145)
[2024-02-27 07:17] LABS: ESTIMATED GFR 84 mL/min (>60)
[2024-02-27] MEDS: Sodium Chloride 0.9% 500 ML IV SCH (07:34)
[2024-02-27 07:52] LABS: TSH ULTRASENSITIVE 2.28 uIU/mL (0.36-3.74)
[2024-02-27 09:27] LABS: AMPHETAMINES SCREEN, URINE NEGATIVE (CUTOFF=500); BARBITURATE SCREEN,URINE NEGATIVE (CUTOFF=200); BENZODIAZEPINES SCREEN,URINE NEGATIVE (CUTOFF=150); BUPRENORPHINE SCREEN,URINE NEGATIVE (CUTOFF=10); METHADONE SCREEN, URINE NEGATIVE (CUTOFF=200); METHAMPHETAMINES SCREEN, URINE NEGATIVE (CUTOFF=500); OXYCODONE SCREEN,URINE NEGATIVE (CUT0FF=100); PCP SCREEN,URINE NEGATIVE (CUTOFF=25); THC SCREEN,URINE 20 NG/ML NEGATIVE (CUTOFF=50)
[2024-02-27] MEDS: Iopamidol 755 Mg/ML 100 ML Bottle IVPUSH ONE (11:05)
== END 2024-02-27 11:29 | disposition home or self-care (01) ==
LOC: MW.ED 06:32
DX: R00.2 Palpitations (principal); J44.9 Chronic obstructive pulmonary disease, unspecified; K21.9 Gastro-esophageal reflux disease without esophagitis; Z79.899 Other long term (current) drug therapy; Z88.5 Allergy status to narcotic agent
CPT/HCPCS: 36415; 71045; 71275; 80048; 80305; 84443; 84484; 85025; 85379; 93005; 96360; 99285; J7040; Q9967

== ENCOUNTER 2025-07-12 14:21 | Emergency (ER) | payer BC ==
[2025-07-12 14:46] LABS: BASOPHILS ABSOLUTE AUTO 0.05 K/uL (0.00-0.20); BASOPHILS PERCENT AUTO 0.6 % (0.0-1.0); EOSINOPHILS ABSOLUTE AUTO 0.14 K/uL (0.00-0.45); EOSINOPHILS PERCENT AUTO 1.7 % (0.0-6.0); IMMATURE GRAN ABSOLUTE AUTO 0.01 K/uL (0.00-0.05); IMMATURE GRAN PERCENT AUTO 0.1 % (0.0-0.4); LYMPHOCYTES ABSOLUTE AUTO 2.46 K/uL (1.00-4.80); LYMPHOCYTES PERCENT AUTO 29.4 % (24.0-44.0); MEAN PLATELET VOLUME 10.1 fL (9.4-12.3); MONOCYTES ABSOLUTE AUTO 0.52 K/uL (0.00-0.80); MONOCYTES PERCENT AUTO 6.2 % (0.0-8.0); NEUTROPHILS ABSOLUTE AUTO 5.20 K/uL (1.80-7.70); NEUTROPHILS PERCENT AUTO 62.0 % (41.0-71.0); NRBC ABSOLUTE 0.00 K/uL (0.00-0.02); NRBC PERCENT 0.0 /100WBC (0.0-0.2); PLATELET COUNT,PLT 282 K/uL (150-400); RED BLOOD CELL COUNT 4.72 M/uL (4.10-5.30); WHITE BLOOD CELL COUNT,WBC 8.38 K/uL (3.9-11.3)
[2025-07-12 15:30] LABS: A/G RATIO 1.2 (0.9-1.6); ALANINE AMINOTRANSFERASE,ALT 28 IU/L (14-63); ASPARTATE AMNIOTRANSFERASE,AST 22 IU/L (15-37); BILIRUBIN TOTAL 0.3 mg/dL (0.2-1.0); BLOOD UREA NITROGEN,BUN 17 mg/dL (7.0-18.0); CARBON DIOXIDE,CO2 27.7 mmol/L (21.0-32.0); CHLORIDE,CL 104 mmol/L (98-107); CREATININE 0.9 mg/dL (0.6-1.0); GLUCOSE RANDOM 133 mg/dL (74-106); POTASSIUM,K 3.6 mmol/L (3.5-5.1); PRO B-TYPE NATRIUR PEPT,BNPPRO 46 pg/mL (0-125); PROTEIN TOTAL,TP 6.9 g/dL (6.4-8.2); SODIUM,NA 141 mmol/L (136-145)
[2025-07-12 15:34] LABS: ESTIMATED GFR 72 mL/min (>60)
[2025-07-12 15:38] LABS: D-DIMER QUANTITATIVE 1.31 mg/L FEU (0.0-0.50)
[2025-07-12] MEDS: Iopamidol 755 Mg/ML 100 ML Bottle IVPUSH ONE (16:01)
[2025-07-12 16:02] LABS: LACTIC ACID 1.0 mmol/L (0.4-2.0)
[2025-07-12 16:07] LABS: INR 0.97 (0.86-1.11)
== END 2025-07-12 17:45 | disposition home or self-care (01) ==
LOC: MW.ED 14:21
DX: K21.9 Gastro-esophageal reflux disease without esophagitis (principal); F17.200 Nicotine dependence, unspecified, uncomplicated; Z75.3 Unavailability and inaccessibility of health-care facilities; Z79.899 Other long term (current) drug therapy; Z88.8 Allergy status to other drugs, medicaments and biological substances
CPT/HCPCS: 36415; 71045; 71275; 80053; 83605; 83690; 83735; 83880; 84484; 85025; 85379; 85610; 93005; 99285; Q9967; 93010; 99284